=== PATIENT | male | born 1995 | race Caucasian/White ===

== ENCOUNTER 2016-08-16 05:33 | Emergency (ER) | payer BC ==
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
== END 2016-08-16 05:53 | disposition disaster alternative care site (69) ==
LOC: GMED 05:33
DX: Z04.1 Encounter for examination and observation following transport accident (principal); Z90.49 Acquired absence of other specified parts of digestive tract; V43.52XA Car driver injured in collision with other type car in traffic accident, initial encounter